=== PATIENT | male | born 1995 | race Caucasian/White ===

== ENCOUNTER 2021-01-11 13:29 | Emergency (ER) | payer MEDICAID ==
[~2021-01-11] VITALS: Ht 152.4 cm; Wt 50.0 kg
--- NOTE | 2021-01-11 14:49 | NUR ---
Pt arrived in room 15 with mother. Pt believes he was drugegd last night with [employer] food. Loss of memory after meal. BS at home was 127. woke this morning confused, eye swelling and dizzy.
[2021-01-11 16:25] LABS: BASOPHILS # (AUTO) 0.1 X10'3 (0-0.2); BASOPHILS % (AUTO) 0.6 % (0-1); EOSINOPHILS # (AUTO) 0.4 X10'3 (0-0.9); EOSINOPHILS % (AUTO) 4.1 % (0-6); HEMATOCRIT 37.4 % (42.0-52.0); HEMOGLOBIN 11.7 g/dl (14.0-17.9); LYMPHOCYTES # (AUTO) 1.7 X10'3 (1.1-4.8); LYMPHOCYTES % (AUTO) 19.2 % (21-51); MEAN CORPUSCULAR HGB CONC 31.4 g/dL (33.0-36.5); MEAN CORPUSCULAR VOLUME 60.7 FL (78-98); MEAN PLATELET VOLUME 8.9 FL (7.4-10.4); MONOCYTES # (AUTO) 0.5 X10'3 (0-0.9); MONOCYTES % (AUTO) 5.5 % (2-12); NEUTROPHILS # (AUTO) 6.3 X10'3 (1.8-7.7); NEUTROPHILS % (AUTO) 70.6 % (42-75); PLATELET COUNT 328 X10'3 (140-440); RED BLOOD COUNT 6.16 X10'6 (4.70-6.10); WHITE BLOOD COUNT 8.8 X10'3 (4.5-11.0)
[2021-01-11 16:33] LABS: ALANINE AMINOTRANSFERASE 44 U/L (12-78); ALBUMIN 3.5 G/DL (3.4-5.0); ALBUMIN/GLOBULIN RATIO 0.9 (1.1-1.5); ALKALINE PHOSPHATASE 125 IU/L (46-116); ANION GAP 8 (8-16); ASPARTATE AMINO TRANSFERASE 24 U/L (10-37); BILIRUBIN,TOTAL 0.6 MG/DL (0.1-1.0); BLOOD UREA NITROGEN 12 MG/DL (7-18); BUN/CREATININE RATIO 7.2 (5.4-32.0); CHLORIDE 102 MMOL/L (99-107); CREATININE 1.67 MG/DL (0.60-1.10); POTASSIUM 5.2 MMOL/L (3.5-5.1); SODIUM 137 MMOL/L (135-145); TOTAL CARBON DIOXIDE 27.1 MMOL/L (24-32); TOTAL PROTEIN 7.3 G/DL (6.4-8.2); eGFR 51 ML/MIN
[2021-01-11 16:36] LABS: GLUCOSE 558 MG/DL (70-104)
--- NOTE | 2021-01-11 16:47 | NUR ---
Md Thakur notified BS 558. At bedside at this time
[2021-01-11 16:57] LABS: ANISOCYTOSIS 1+; MICROCYTOSIS 2+; PLATELET ESTIMATE NORMAL
[2021-01-11 16:58] LABS: POIKILOCYTOSIS FEW; POLYCHROMASIA FEW
[2021-01-11 17:23] LABS: URINE AMPHETAMINE SCREEN NEGATIVE (Neg); URINE BARBITUATE SCREEN NEGATIVE (Neg); URINE BENZODIAZEPINES SCREEN NEGATIVE (Neg); URINE CANNABINOID SCREEN NEGATIVE (Neg); URINE COCAINE SCREEN NEGATIVE (Neg); URINE METHADONE SCREEN NEGATIVE (Neg); URINE OPIATE SCREEN NEGATIVE (Neg); URINE PHENCYCLIDINE SCREEN NEGATIVE (Neg)
[2021-01-11 17:47] VITALS: BP 121/79
== END 2021-01-11 17:45 | disposition home or self-care (01) ==
LOC: ER 13:30
DX: E11.65 Type 2 diabetes mellitus with hyperglycemia (principal); Z88.8 Allergy status to other drugs, medicaments and biological substances; Z98.890 Other specified postprocedural states
CPT/HCPCS: 80053; 80305; 85008; 85025; 99283

== ENCOUNTER 2021-03-26 13:43 | Emergency (ER) | payer MEDICAID ==
[~2021-03-26] VITALS: Ht 152.4 cm; Wt 54.5 kg
[2021-03-26 13:45] VITALS: BP 108/58
== END 2021-03-26 15:40 | disposition home or self-care (01) ==
LOC: ER 13:43
DX: R41.3 Other amnesia (principal); R41.0 Disorientation, unspecified; R51.9 Headache, unspecified; E84.9 Cystic fibrosis, unspecified; E11.9 Type 2 diabetes mellitus without complications; G40.909 Epilepsy, unspecified, not intractable, without status epilepticus; N19 Unspecified kidney failure; K72.90 Hepatic failure, unspecified without coma; Z88.8 Allergy status to other drugs, medicaments and biological substances
CPT/HCPCS: 82948; 99281; 99283

== ENCOUNTER 2021-11-08 12:25 | Emergency (ER) | payer MEDICAID ==
[~2021-11-08] VITALS: Ht 152.4 cm; Wt 50.9 kg
[2021-11-08 12:48] VITALS: BP 107/69
[2021-11-08] MEDS ORDERED: normal saline 1000ml 1,000 ML IV ONE ×2 (13:15)
[2021-11-08 13:19] LABS: BASOPHILS % (AUTO) 0.5 % (0-1); EOSINOPHILS # (AUTO) 0.2 X10'3 (0-0.9); EOSINOPHILS % (AUTO) 2.6 % (0-6); LYMPHOCYTES # (AUTO) 1.2 X10'3 (1.1-4.8); LYMPHOCYTES % (AUTO) 14.7 % (21-51); MEAN PLATELET VOLUME 8.8 FL (7.4-10.4); MONOCYTES # (AUTO) 0.5 X10'3 (0-0.9); NEUTROPHILS # (AUTO) 6.4 X10'3 (1.8-7.7); NEUTROPHILS % (AUTO) 76.2 % (42-75); PLATELET COUNT 251 X10'3 (140-440); WHITE BLOOD COUNT 8.3 X10'3 (4.5-11.0)
[2021-11-08 13:29] LABS: ALANINE AMINOTRANSFERASE 38 U/L (12-78); ALBUMIN 2.9 G/DL (3.4-5.0); ALBUMIN/GLOBULIN RATIO 0.8 (1.1-1.5); ALKALINE PHOSPHATASE 98 IU/L (46-116); ANION GAP 7 (8-16); ASPARTATE AMINO TRANSFERASE 31 U/L (10-37); BILIRUBIN,TOTAL 0.4 MG/DL (0.1-1.0); BLOOD UREA NITROGEN 23 MG/DL (7-18); BUN/CREATININE RATIO 11.2 (5.4-32.0); CALCIUM 8.1 MG/DL (8.5-10.1); CHLORIDE 96 MMOL/L (99-107); CREATININE 2.05 MG/DL (0.60-1.10); POTASSIUM 5.2 MMOL/L (3.5-5.1); SODIUM 128 MMOL/L (135-145); TOTAL CARBON DIOXIDE 25.1 MMOL/L (24-32); TOTAL PROTEIN 6.7 G/DL (6.4-8.2); eGFR 40 ML/MIN
[2021-11-08 13:32] LABS: GLUCOSE 688 MG/DL (70-104)
[2021-11-08 13:40] LABS: HEMATOCRIT 33.7 % (42.0-52.0); MEAN CORPUSCULAR HEMOGLOBIN 19.2 PG (27.0-31.0); MEAN CORPUSCULAR HGB CONC 32.8 g/dL (33.0-36.5); MEAN CORPUSCULAR VOLUME 58.5 FL (78-98); RED BLOOD COUNT 5.76 X10'6 (4.70-6.10); RED CELL DISTRIBUTION WIDTH 15.2 % (11.5-14.5)
[2021-11-08] MEDS ORDERED: insulin regular, human 10 units/0.1 ml syringe IV ONE (14:00)
[2021-11-08 14:10] LABS: PLATELET ESTIMATE NORMAL
[2021-11-08 14:11] LABS: ANISOCYTOSIS 1+; ELLIPTOCYTES 1+; HYPOCHROMASIA 3+; MICROCYTOSIS 3+; SCHISTOCYTES FEW; TEAR DROP CELLS FEW
[2021-11-08 14:53] LABS: CLARITY,URINE CLEAR (Clear); GLUCOSE, URINE >=1000 mg/dl (Neg); KETONES,URINE NEGATIVE (Neg); LEUKOCYTE ESTERASE ,URINE NEGATIVE (Neg); NITRITES, URINE NEGATIVE (Neg); OCCULT BLOOD,URINE NEGATIVE (Neg); PH,URINE 5.5 (4.8-8.0); PROTEIN,URINE NEGATIVE (Neg); UROBILINOGEN,URINE 0.2 E.U/dL (0.2-1.0)
[2021-11-08 14:57] LABS: COLOR,URINE STRAW (Yellow); UA COLLECTION TYPE CLN CATCH MIDSTREAM
[2021-11-08 15:00] LABS: BACTERIA,URINE NONE SEEN /HPF (Neg); MUCUS STRANDS NONE SEEN /LPF (Neg); RBC,URINE 0-2 /HPF (0-2); SQUAMOUS EPITHELIAL CELL,UR NONE SEEN /LPF (FEW); WBC,URINE 0-4 /HPF (0-4)
--- NOTE | 2021-11-08 15:15 | NUR ---
provider informed of pt bs 437. provider ok with pt being discharged home.
== END 2021-11-08 16:05 | disposition home or self-care (01) ==
LOC: ER 12:25
DX: E10.65 Type 1 diabetes mellitus with hyperglycemia (principal); E84.9 Cystic fibrosis, unspecified; N19 Unspecified kidney failure; K72.90 Hepatic failure, unspecified without coma; Z98.890 Other specified postprocedural states; Z88.8 Allergy status to other drugs, medicaments and biological substances
CPT/HCPCS: 36415; 80053; 81001; 82948; 85008; 85025; 96361; 96374; 99283; J1815; J7030

== ENCOUNTER 2022-12-25 12:45 | Emergency (ER) | payer MEDICAID ==
[~2022-12-25] VITALS: Ht 152.4 cm; Wt 50.0 kg
[2022-12-25 13:03] VITALS: BP 116/61
--- NOTE | 2022-12-25 15:50 | NUR ---
MRI SCREENING FORM COMPLETED, FAXED TO 5555.
[2022-12-25] MEDS ORDERED: dextrose 5%-1/2 normal saline 1,000 ML IV ONE (16:05)
[2022-12-25] MEDS ORDERED: dextrose 50%-water 50ml dispensing syringe IV PRN (16:10)
--- NOTE | 2022-12-25 16:13 | NUR ---
pt refusing IV dextrose at this time. educated pt on purpose and risks of refusal pt continues to adamantly refuse stating that he is eating and would like his blood sugar rechecked in 10 minutes
--- NOTE | 2022-12-25 16:28 | NUR ---
PT BG UP TO 88 MRI TO RETURN IN 10 MINUTES
[2022-12-25] MEDS ORDERED: ALBU17AE26 IH (17:56)
[2022-12-25] MEDS ORDERED: INSU100I8 SQ (17:56)
[2022-12-25] MEDS ORDERED: ELEX1TAB PO ×2 (17:57→17:58)
[2022-12-25] MEDS ORDERED: INSU100I31 SQ (17:57)
[2022-12-25] MEDS ORDERED: CHOL10006 PO (17:58)
[2022-12-25] MEDS ORDERED: DORN1SOL NEB (18:19)
[2022-12-25] MEDS ORDERED: FAMO-128 PO (18:19)
[2022-12-25] MEDS ORDERED: FERR325T32 PO (18:20)
[2022-12-25] MEDS ORDERED: AMYL1CAP56 PO ×2 (18:22→18:23)
--- NOTE | 2022-12-25 18:23 | NUR ---
Patient up and pacing the room. Spoke with Carter about plan for discharge, Carter will speak to Raymundo and discuss plan.
[2022-12-25] MEDS ORDERED: MULT-1085 PO (18:24)
[2022-12-25] MEDS ORDERED: NACL IH (18:29)
== END 2022-12-25 19:05 | disposition home or self-care (01) ==
LOC: ER 12:45
DX: E83.59 Other disorders of calcium metabolism (principal); G93.9 Disorder of brain, unspecified; E11.9 Type 2 diabetes mellitus without complications; Z88.8 Allergy status to other drugs, medicaments and biological substances; Z79.899 Other long term (current) drug therapy; Z79.1 Long term (current) use of non-steroidal anti-inflammatories (NSAID); Z79.2 Long term (current) use of antibiotics
CPT/HCPCS: 70450; 70551; 82948; 99284

== ENCOUNTER 2024-03-01 01:24 | Emergency (ER) | payer MEDICAID, OTHER ==
[~2024-03-01] VITALS: Ht 157.5 cm; Wt 50.0 kg
[~2024-03-01 01:24] MED LIST: ALBU17AE26 IH; AMYL1CAP56 PO; CHOL10006 PO; DORN1SOL NEB; ELEX1TAB PO; FAMO-128 PO; FERR325T32 PO; INSU100I31 SQ; INSU100I8 SQ; MULT-1085 PO; NACL IH
[2024-03-01 01:29] VITALS: TEMP 98.9
[2024-03-01] MEDS: normal saline 1000ml 1,000 ML IV ONE (02:00)
[2024-03-01 02:11] LABS: BASOPHILS # (AUTO) 0.1 X10'3 (0-0.2); BASOPHILS % (AUTO) 0.6 % (0-1); EOSINOPHILS # (AUTO) 0.1 X10'3 (0-0.9); EOSINOPHILS % (AUTO) 1.2 % (0-6); HEMATOCRIT 32.3 % (42.0-52.0); HEMOGLOBIN 10.1 g/dl (14.0-17.9); LYMPHOCYTES % (AUTO) 7.9 % (21-51); MEAN CORPUSCULAR HEMOGLOBIN 18.1 PG (27.0-31.0); MEAN CORPUSCULAR HGB CONC 31.1 g/dL (33.0-36.5); MEAN CORPUSCULAR VOLUME 58.2 FL (78-98); MEAN PLATELET VOLUME 8.9 FL (7.4-10.4); MONOCYTES # (AUTO) 0.5 X10'3 (0-0.9); MONOCYTES % (AUTO) 4.2 % (2-12); NEUTROPHILS # (AUTO) 10.6 X10'3 (1.8-7.7); NEUTROPHILS % (AUTO) 86.1 % (42-75); PLATELET COUNT 221 X10'3 (140-440); RED BLOOD COUNT 5.56 X10'6 (4.70-6.10); RED CELL DISTRIBUTION WIDTH 15.6 % (11.5-14.5); WHITE BLOOD COUNT 12.3 X10'3 (4.5-11.0)
[2024-03-01 02:27] LABS: ALANINE AMINOTRANSFERASE 85 U/L (12-78); ALBUMIN 3.2 G/DL (3.4-5.0); ALBUMIN/GLOBULIN RATIO 0.9 (1.1-1.5); ALKALINE PHOSPHATASE 102 IU/L (46-116); ANION GAP 10 (8-16); ASPARTATE AMINO TRANSFERASE 52 U/L (10-37); BILIRUBIN,TOTAL 0.6 MG/DL (0.1-1.0); BLOOD UREA NITROGEN 34 MG/DL (7-18); CALCIUM 7.6 MG/DL (8.5-10.1); CHLORIDE 102 MMOL/L (99-107); CREATININE 2.27 MG/DL (0.60-1.10); POTASSIUM 4.3 MMOL/L (3.5-5.1); PRO BRAIN NATRIURETIC PEPTIDE < 30 PG/ML (0-125); SODIUM 132 MMOL/L (135-145); TOTAL CARBON DIOXIDE 20.4 MMOL/L (24-32); TOTAL PROTEIN 6.8 G/DL (6.4-8.2); eCRCL 35 ML/MIN; eGFR 35 ML/MIN
[2024-03-01 02:36] LABS: GLUCOSE 482 MG/DL (70-104)
[2024-03-01] MEDS: insulin regular, human 10 units/0.1 ml syringe IV ONE ×3 (02:48→06:06)
[2024-03-01 02:52] LABS: ANISOCYTOSIS 1+; PLATELET ESTIMATE NORMAL
[2024-03-01 02:53] LABS: ELLIPTOCYTES 1+; MICROCYTOSIS 3+; SCHISTOCYTES FEW; TEAR DROP CELLS FEW
[2024-03-01 02:57] LABS: BURR CELLS FEW
[2024-03-01 02:58] LABS: HYPOCHROMASIA 2+
[2024-03-01 06:32] VITALS: BP 111/68; PULSE 93; RESP 15; O2SAT 96
== END 2024-03-01 07:40 | disposition home or self-care (01) ==
LOC: ER 01:25
DX: F19.10 Other psychoactive substance abuse, uncomplicated (principal); E11.65 Type 2 diabetes mellitus with hyperglycemia; Z88.8 Allergy status to other drugs, medicaments and biological substances; Z79.899 Other long term (current) drug therapy; Z79.4 Long term (current) use of insulin; Z98.890 Other specified postprocedural states
CPT/HCPCS: 36415; 80053; 82948; 83880; 84484; 85008; 85025; 93005; 96361; 96374; 96376; 99285; J1815; J7030